=== PATIENT | female | born 1980 | race African-American/Black ===

== ENCOUNTER 2025-08-30 15:11 | Emergency (ER) | payer MEDICAID ==
[~2025-08-30] VITALS: Ht 160 cm; Wt 100.0 kg
[2025-08-30 15:29] VITALS: TEMP 36.7; O2SAT 100
[2025-08-30] MEDS: IBUPROFEN 600MG TABLET PO ONE (17:20)
[2025-08-30 18:45] LABS: COLOR URINE YELLOW (YELLOW); GLUCOSE URINE NEGATIVE (NEGATIVE); KETONES URINE NEGATIVE (NEGATIVE); LEUKOCYTE ESTERASE URINE NEGATIVE (NEGATIVE); NITRITE URINE NEGATIVE (NEGATIVE); OCCULT BLOOD URINE 1+ (NEGATIVE); PH URINE 5.0 (4.5-8.0); PROTEIN URINE NEGATIVE (NEGATIVE); SPECIFIC GRAVITY URINE 1.025 (1.005-1.030); UROBILINOGEN URINE 0.2 E.U./dL (0.2-1.0)
[2025-08-30 18:46] LABS: BASOPHILS % 1.3 % (0.0-2.0); EOSINOPHILS % 1.5 % (0.0-5.0); HEMATOCRIT. 31.2 % (36.0-48.0); HEMOGLOBIN. 9.5 g/dL (12.0-16.0); LYMPHOCYTES % 33.3 % (20.0-50.0); MEAN PLATELET VOLUME 9.0 fl (7.4-10.4); MONOCYTES % 5.5 % (2.0-8.0); NEUTROPHILS % 58.4 % (40.0-76.0); PLATELET 266 x1000/uL (130-400); RED BLOOD CELL COUNT 4.41 mill/uL (4.2-5.4); RED CELL DISTRIBUTION WIDTH 20.8 % (11.6-14.6)
[2025-08-30 18:48] LABS: CREATININE 0.8 mg/dL (0.6-1.0); HCG SCREEN NEGATIVE; UREA NITROGEN BLOOD 10 mg/dL (9-23)
[2025-08-30 19:03] LABS: CLARITY URINE SL HAZY (CLEAR)
[2025-08-30 19:05] LABS: RBC URINE 0-2 /hpf (0-2); WBC URINE NONE SEEN /hpf (0-2)
[2025-08-30 19:06] LABS: BACTERIA URINE NONE SEEN; SQUAMOUS EPITHELIAL CELL URINE 1+ /lpf (RARE/1+)
[2025-08-30] MEDS ORDERED: IBUP-1455 MT (19:19)
[2025-08-30] MEDS ORDERED: PSYL575P22 MT (19:19)
[2025-08-30 19:31] VITALS: BP 148/74; PULSE 85; RESP 14; O2SAT 99
== END 2025-08-30 19:32 | disposition home or self-care (01) ==
LOC: ER 15:11
DX: N80.03 Adenomyosis of the uterus (principal); N93.9 Abnormal uterine and vaginal bleeding, unspecified; Z98.51 Tubal ligation status
CPT/HCPCS: 36415; 76830; 76856; 80048; 81003; 81025; 84703; 85025; 86850; 86900; 99284